=== PATIENT | male | born 1995 | race Caucasian/White ===

== ENCOUNTER → 2016-10-17 | Outpatient (REF) ==
[~2016-10-17] MED LIST: CEPHALEXIN500 M1 PO
== END ==
LOC: WSOH 11:46
DX: Z02.89 Encounter for other administrative examinations (principal)

== ENCOUNTER → 2019-03-19 | Outpatient (CLI) | payer BC | LOC: COL.RAD 14:26 | DX: M54.41 Lumbago with sciatica, right side (principal); M54.42 Lumbago with sciatica, left side ==